=== PATIENT | male | born 1980 ===

== ENCOUNTER 2017-09-24 00:28 | Emergency (ER) | payer MEDICARE ==
[2017-09-24 00:48] VITALS: BP 152/90; PULSE 93; RESP 16; TEMP 97.8; O2SAT 95
[2017-09-24] MEDS ORDERED: Tdap Vaccine 0.5 ml Vial (10-64 yrs) IM ONE ×2 (01:10→01:22)
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
== END 2017-09-24 01:40 | disposition home or self-care (01) ==
LOC: H.ER 00:28
DX: S40.022A Contusion of left upper arm, initial encounter (principal); S40.021A Contusion of right upper arm, initial encounter; Y09 Assault by unspecified means; Z23 Encounter for immunization